=== PATIENT | male | born 1960 | race Caucasian/White ===

== ENCOUNTER 2019-05-06 14:31 | Emergency (ER) | payer OTHER ==
[~2019-05-06] VITALS: Ht 175.3 cm; Wt 72.0 kg
[~2019-05-06 14:31] MED LIST: ESCI10TA PO; FAMO-96 PO; IBUP-1542 PO; LISI40TA PO; RISP0.5T3 PO; TRAM50TA PO
[2019-05-06 14:42] VITALS: Ht 175.3 cm; Wt 72.0 kg
[2019-05-06] MEDS ORDERED: KETOROLAC 15 MG INJ IV STA (17:14)
[2019-05-06 17:53] VITALS: BP 126/85; PULSE 99; RESP 20
== END 2019-05-06 14:53 | disposition home or self-care (01) ==
LOC: E/R 14:31
DX: R07.9 Chest pain, unspecified (principal); I10 Essential (primary) hypertension; R40.2142 Coma scale, eyes open, spontaneous, at arrival to emergency department; R40.2362 Coma scale, best motor response, obeys commands, at arrival to emergency department; R40.2252 Coma scale, best verbal response, oriented, at arrival to emergency department; Z87.891 Personal history of nicotine dependence
CPT/HCPCS: 36415; 71045; 80048; 80076; 80307; 81001; 84443; 84484; 85025; 86850; 86900; 86901; 93005; 96374; J1885; Z7502

== ENCOUNTER 2019-05-07 14:32 | Emergency (ER) | payer OTHER ==
[~2019-05-07] VITALS: Ht 180.3 cm; Wt 69.3 kg
[~2019-05-07 14:32] MED LIST changes: -IBUP-1542 PO; -LISI40TA PO; -TRAM50TA PO
[2019-05-07 14:35] VITALS: Ht 180.3 cm; Wt 69.3 kg
[2019-05-07] MEDS ORDERED: SOD CHLORIDE 0.9% 1,000 ML IV STA (15:37)
[2019-05-07] MEDS ORDERED: LORAZEPAM 2 MG INJ IV ONE (18:00)
[2019-05-07] MEDS ORDERED: IBUPROFEN 600 MG TAB PO ONE (21:00)
[2019-05-07] MEDS ORDERED: RISPERIDONE 1 MG TAB PO ONE (21:30)
[2019-05-07] MEDS ORDERED: LORAZEPAM 2 MG INJ IM ONE (22:00)
[2019-05-07] MEDS ORDERED: HALOPERIDOL 5 MG INJ IM ONE (22:30)
[2019-05-08] MEDS ORDERED: LORAZEPAM 2 MG INJ IV ONE (03:30)
[2019-05-08] MEDS ORDERED: HALOPERIDOL 5 MG INJ IV ONE (03:30)
[2019-05-08 08:52] VITALS: BP 132/78; PULSE 81; RESP 17
== END 2019-05-08 06:46 | disposition short-term general hospital (02) ==
LOC: E/R 14:32
DX: F22 Delusional disorders (principal); I10 Essential (primary) hypertension; Z87.891 Personal history of nicotine dependence
CPT/HCPCS: 36415; 80053; 80307; 81001; 85025; 96372; 96374; 96375; 96376; J1630; J2060; J7030; Z7502; Z7610; 81003